=== PATIENT | female | born 1990 | race Caucasian/White ===

== ENCOUNTER 2017-07-06 09:07 | Emergency (ER) | payer OTHER ==
[~2017-07-06] VITALS: Ht 152.4 cm; Wt 47.6 kg
[~2017-07-06 09:07] MED LIST: CIPR500 PO; HYDACE5 PO; IBUP800 PO; MEDR150I IM; PENVK500 PO; PHENA200 PO; PROM25 PO; RXPROM25 PO; [UNRECOGNIZED DRUG - CODE]
[2017-07-06] MEDS ORDERED: Veetids 500500 MG PO (09:18)
[2017-07-06] MEDS ORDERED: IBUP800 PO (09:18)
[2017-07-06] MEDS ORDERED: BIRTH CONTROL (09:20)
== END 2017-07-06 09:28 | disposition home or self-care (01) ==
LOC: ER 09:07
DX: K04.7 Periapical abscess without sinus (principal); K03.81 Cracked tooth; Z88.5 Allergy status to narcotic agent; F17.200 Nicotine dependence, unspecified, uncomplicated
CPT/HCPCS: 99283

== ENCOUNTER 2021-03-26 16:46 | Emergency (ER) | payer OTHER, BC ==
[~2021-03-26] VITALS: Ht 152.4 cm; Wt 52.2 kg
[~2021-03-26 16:46] MED LIST changes: +BIRTH CONTROL; +Veetids 500500 MG PO
[2021-03-26] MEDS ORDERED: GABA300 PO (17:15)
[2021-03-26] MEDS ORDERED: ONDA4 PO (19:01)
== END 2021-03-26 19:09 | disposition home or self-care (01) ==
LOC: ER 16:46
DX: S60.212A Contusion of left wrist, initial encounter (principal); M54.2 Cervicalgia; F17.200 Nicotine dependence, unspecified, uncomplicated; V43.52XA Car driver injured in collision with other type car in traffic accident, initial encounter
CPT/HCPCS: 29125; 72125; 73090; 73110; 96374; 96375; 99284-25; A9270; J1885; J2405; J3010

== ENCOUNTER 2024-05-04 23:33 | Emergency (ER) | payer OTHER ==
[~2024-05-04] VITALS: Ht 149.9 cm; Wt 54.4 kg
[~2024-05-04 23:33] MED LIST changes: +CEPH500 PO; +GABA300 PO; +IBUP600 PO; +ONDA4 PO
[2024-05-05 00:33] LABS: Source, Urine Voided
[2024-05-05 00:36] LABS: Bilirubin, Urine Neg (Neg); Blood, Urine Neg (Neg); Glucose Qualitative, Urine Neg (Neg); Ketones, Urine Neg (Neg); Leukocyte Esterase, Urine Neg (Neg); Nitrite, Urine Neg (Neg); Protein, Urine Neg (Neg); Specific Gravity, Urine 1.005 (1.003-1.022); Urobilinogen, Urine NORM (Normal)
[2024-05-05 00:42] LABS: Appearance, Urine Clear (Clear); Color, Urine Yellow (P-Yellow)
[2024-05-05 00:47] LABS: BASOPHILS ABSOLUTE AUTO 0.08 K/mm3 (0.00-0.23); BASOPHILS PERCENT AUTO 1 % (0-2); EOSINOPHILS ABSOLUTE AUTO 0.29 K/mm3 (0.00-0.68); EOSINOPHILS PERCENT AUTO 3 % (0-6); Hematocrit 40.7 % (33.0-51.0); Hemoglobin 13.7 g/dL (11.5-16.0); IMMATURE GRAN ABSOLUTE AUTO 0.04 K/mm3 (0.00-0.10); IMMATURE GRAN PERCENT AUTO 0 % (0-1); LYMPHOCYTES PERCENT AUTO 12 % (21-46); MONOCYTES ABSOLUTE AUTO 1.18 K/mm3 (0.16-1.47); MONOCYTES PERCENT AUTO 13 % (4-13); Mean Corpuscular HGB 31.9 pg (26.0-34.0); Mean Corpuscular HGB Conc 33.7 g/dL (31.5-36.5); Mean Corpuscular Volume 95 fL (80-100); Mean Platelet Volume 10.1 fL (9.1-12.4); NEUTROPHILS ABSOLUTE AUTO 6.26 K/mm3 (1.96-9.15); NEUTROPHILS PERCENT AUTO 70 % (41-73); Platelet Count 267 K/mm3 (150-400); RDW Coefficient Variation 13.2 % (11.7-14.2); RDW Standard Deviation 45.9 fL (35.1-46.3); White Blood Cell Count 8.95 K/mm3 (4.00-11.30)
[2024-05-05 01:18] LABS: Albumin, Blood 3.7 g/dL (3.4-5.0); Albumin/Globulin Ratio 0.9 (0.8-1.8); Bilirubin, Total 0.7 mg/dL (0.1-1.0); Bun/Creatinine Ratio 11.8 (12.0-20.0); Calcium, Blood 8.9 mg/dL (8.5-10.1); Creatinine, Blood 0.51 mg/dL (0.40-1.00); Globulin, Blood 3.9 g/dL (2.2-4.0); Potassium, Blood 3.9 mmol/L (3.5-5.5); Total Protein, Blood 7.6 g/dL (6.4-8.2)
[2024-05-05] MEDS ORDERED: NS 1,000 ML IV SCH (02:20)
[2024-05-05] MEDS ORDERED: Ketorolac Tromethamine 30mg Vial IV ONE (02:20)
[2024-05-05] MEDS ORDERED: Ondansetron HCl 2 MG / ML 2ML Vial IV ONE (02:25)
[2024-05-05 02:30] VITALS: BP 127/93
[2024-05-05 03:47] LABS: Influenza A, PCR NEGATIVE (NEGATIVE); Influenza B, PCR NEGATIVE (NEGATIVE); Resp Syncytial Virus, PCR NEGATIVE (NEGATIVE); SARS-Cov-2 (COVID-19) PCR, MMC NEGATIVE (NEGATIVE)
[2024-05-05] MEDS ORDERED: ONDA4ODT MM (04:07)
== END 2024-05-05 04:24 | disposition home or self-care (01) ==
LOC: ER 23:33
PROVIDERS: Emergency Medicine
DX: E86.0 Dehydration (principal); F17.290 Nicotine dependence, other tobacco product, uncomplicated; Z88.5 Allergy status to narcotic agent
CPT/HCPCS: 0241U; 80053; 81003; 81025; 83690; 85025; 86850; 86900; 86901; 96361; 96374; 96375; 99284; J1885; J2405; J7030